=== PATIENT | male | born 1970 | race Two or more races ===

== ENCOUNTER 2019-07-06 19:39 | Emergency (ER) | payer BC ==
[~2019-07-06] VITALS: Ht 165.1 cm; Wt 88.7 kg
--- NOTE | 2019-07-06 20:10 | NUR ---
Pt presents to room reporting onset of dizziness while driving about 25 min [employer]. Pt states his symptoms feel similar to panic attacks he has had in the past. Pt denies SOB or CP with the dizziness. Pt deneis AP or N/V/D with his symptoms. 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
[2019-07-06 20:28] VITALS: BP 128/80
== END 2019-07-06 20:36 | disposition home or self-care (01) ==
LOC: ED 20:00
DX: R55 Syncope and collapse (principal); R42 Dizziness and giddiness; E11.9 Type 2 diabetes mellitus without complications
CPT/HCPCS: 82962; 93005; 99283